=== PATIENT | female | born 1970 | race Caucasian/White ===

== ENCOUNTER → 2019-12-25 11:23 | Outpatient (CLI) | payer OTHER, SELFPAY ==
--- NOTE | 2019-12-25 | DI.MG.S_ITS ---
BILATERAL DIGITAL SCREENING MAMMOGRAM 3D/2D WITH CAD: 12/25/2019 CLINICAL: Routine screening. Comparison is made to exams dated: 11/26/2016 mammogram - [facility], 10/31/2014 mammogram - [facility], and 07/08/2013 mammogram - [facility]. There are scattered fibroglandular elements in both breasts. Current study was also evaluated with a Computer Aided Detection (CAD) system. No significant masses, calcifications, or other findings are seen in either breast. There has been no significant interval change. IMPRESSION: NEGATIVE There is no mammographic evidence of malignancy. A 1 year screening mammogram is recommended. This exam was interpreted at Station ID: [id number]. NOTE: For mammograms, a report in lay terms will be sent to the patient. Approximately 15% of breast malignancies will not be visualized mammographically. In the management of a palpable breast mass, a negative mammogram must not discourage biopsy of a clinically suspicious lesion. Electronically Signed By: Barbara [email or web address]:12/26/2019 15:44:57 letter sent: Normal Exam ACR BI-RADS Category 1: Negative [id number]
== END ==
PROVIDERS: Referring Provider Family Medicine; Visit Provider Family Medicine
DX: Z12.31 Encounter for screening mammogram for malignant neoplasm of breast (principal)
CPT/HCPCS: 77063; 77067

== ENCOUNTER 2021-03-16 12:38 | Emergency (ER) | payer OTHER, SELFPAY ==
[2021-03-16 13:14] VITALS: BP 148/63; PULSE 70; RESP 16; TEMP 36.4; O2SAT 99; BMI 33.3
--- NOTE | 2021-03-16 15:06 | DI.RAD.S_ITS ---
PROCEDURE: XR LUMBAR SPINE 2-3V INDICATIONS: sudden onset back pain with radiation to rt lateral hip TECHNIQUE: 2 views of the lumbar spine were acquired. COMPARISON: None. FINDINGS: Bones: 5 [id number] vertebrae are present. There is normal bony alignment. No vertebral body compression fractures. No suspicious bony lesions. There is at least moderate disc space narrowing seen at L5-S1. Mild disc space narrowing is seen at L3-L4 and L4-L5. Lower lumbar spine facet arthropathy is seen. Soft tissues: Overlying bowel gas pattern is normal. No suspicious soft tissue calcifications. IMPRESSION: No won, acute plain film abnormality is seen. Focal L5-S1 degenerative change is seen. If it would be helpful for clinical management decision making, please consider a dedicated, scheduled lumbar spine MRI for further evaluation (assuming that there is no contraindication). Dictated by: Kartik Weber M.D. on 03/16/2021 at 14:58 Approved by: Kartik Weber M.D. on 03/16/2021 at 14:59
--- NOTE | 2021-03-16 15:07 | ED.BACK ---
HPI - Back Pain/Injury <SIGIFREDO Sanchez - Last Filed: 03/16/21 16:28> General Chief Complaint: Back Pain/Injury Stated Complaint: Back went out Time Seen by Provider: 03/16/21 14:52 Source: patient History of Present Illness HPI Narrative: 51-year-old female presents to the emergency department for low back pain which came on suddenly when she was opening a Fridge today and radiated down the lateral aspect of her right hip. She has a history of low back pain in the past but today she felt like her back went ?out?. She denies any sensation changes to her lower extremities, she denies any fever, recent illness, loss of bowel or bladder, weakness, changes to her gait, or any other changes. Patient reports that she took 800 mg of ibuprofen this morning after this happened which helped a little bit. She has never had any imaging of her low back in the past. Related Data Previous Rx's Medication Instructions Recorded lidocaine 4 % topical patch 1 patch TOPICAL DAILY PRN #10 ea 03/16/21 lidocaine 4 % topical patch 1 patch TOPICAL DAILY PRN #10 ea 03/16/21 methocarbamol 500 mg tablet 500 mg PO Q8H #20 tab 03/16/21 methocarbamol 500 mg tablet 500 mg PO Q8H PRN #20 tab 03/16/21 prednisone 20 mg tablet 40 mg PO DAILY #10 tab 03/16/21 prednisone 20 mg tablet 40 mg PO DAILY 5 Days tab 03/16/21 prednisone 20 mg tablet 40 mg PO DAILY 5 Days #10 tab 03/16/21 Allergies Allergy/AdvReac Type Severity Reaction Status Date / Time Penicillins Allergy Severe Hives Verified 03/16/21 13:20 Review of Systems <SIGIFREDO Sanchez - Last Filed: 03/16/21 16:28> Review of Systems Narrative: General: denies fever, chills Head/Neck: denies headache, neck pain Eyes: denies visual changes, eye pain Cardio: denies chest pain, palpitations Respiratory: denies shortness of breath, cough GI: denies abdominal pain, nausea, vomiting, or diarrhea : denies dysuria, hematuria MSK: denies joint pain, muscle weakness, endorses right-sided low back pain with muscle tightness and spasm Skin: denies rash, itching Neuro: denies numbness, tingling, sensation changes Patient History <SIGIFREDO Sanchez - Last Filed: 03/16/21 16:28> Social History Smoking Status: Never smoker Smoking Status: Never smoker alcohol intake frequency: 0-2 drinks per day Substance Use Type: does not use Exam <SIGIFREDO Sanchez - Last Filed: 03/16/21 16:28> Narrative Exam Narrative: Independently reviewed vitals signs and nursing notes. General: Awake, alert, nontoxic, no cardiorespiratory distress Head/Neck: Atraumatic, neck full range of motion Eyes: EOMI, conjunctiva normal Nose: nares patent, no rhinorrhea Mouth/Throat: moist mucus membranes, no oral lesions Cardio: Regular rate and rhythm, no peripheral edema Respiratory: respirations unlabored without wheezing, stridor, or rales. No retractions. GI: Abdomen soft, nontender MSK: Moves all extremities, neurovascularly intact, muscles to the right side of lumbar spine are firm and tight. Skin: Normal capillary refill, no rash Neuro: Normal speech and cognition, normal gait Initial Vital Signs Initial Vital Signs: Vital Signs Temperature 97.5 F L 03/16/21 13:14 Pulse Rate 70 03/16/21 13:14 Respiratory Rate 16 03/16/21 13:14 Blood Pressure 148/63 H 03/16/21 13:14 Pulse Oximetry 99 03/16/21 13:14 <Daniela Lindsey DO - Last Filed: 03/18/21 14:53> Initial Vital Signs Initial Vital Signs: Vital Signs Temperature 97.5 F L 03/16/21 13:14 Pulse Rate 70 03/16/21 13:14 Respiratory Rate 16 03/16/21 13:14 Blood Pressure 148/63 H 03/16/21 13:14 Pulse Oximetry 99 03/16/21 13:14 Course <SIGIFREDO Sanchez - Last Filed: 03/16/21 16:28> Orders Ordered: Discontinued Medications Acetaminophen (Acetaminophen 325 Mg Tablet) 975 mg PO NOW ONE Stop: 03/16/21 15:07 Last Admin: 03/16/21 15:33 Dose: 975 mg Documented by: RSTONE Methocarbamol (Methocarbamol 500 Mg Tablet) 500 mg PO NOW ONE Stop: 03/16/21 15:07 Last Admin: 03/16/21 15:33 Dose: 500 mg Documented by: SAMIRA Prednisone (Prednisone 20 Mg Tablet) 40 mg PO NOW ONE Stop: 03/16/21 15:07 Last Admin: 03/16/21 15:33 Dose: 40 mg Documented by: SAMIRA Vital Signs Vital signs: Vital Signs - 8 hr 03/16/21 13:14 Temperature 97.5 F L Pulse Rate 70 Respiratory Rate 16 Blood Pressure 148/63 H Pulse Oximetry 99 <Daniela Lindsey DO - Last Filed: 03/18/21 14:53> Orders Ordered: Discontinued Medications Acetaminophen (Acetaminophen 325 Mg Tablet) 975 mg PO NOW ONE Stop: 03/16/21 15:07 Last Admin: 03/16/21 15:33 Dose: 975 mg Documented by: SAMIRA Methocarbamol (Methocarbamol 500 Mg Tablet) 500 mg PO NOW ONE Stop: 03/16/21 15:07 Last Admin: 03/16/21 15:33 Dose: 500 mg Documented by: SAMIRA Prednisone (Prednisone 20 Mg Tablet) 40 mg PO NOW ONE Stop: 03/16/21 15:07 Last Admin: 03/16/21 15:33 Dose: 40 mg Documented by: SAMIRA Vital Signs Vital signs: Vital Signs - 8 hr 03/16/21 13:14 Temperature 97.5 F L Pulse Rate 70 Respiratory Rate 16 Blood Pressure 148/63 H Pulse Oximetry 99 MDM - Back Pain/Injury <SIGIFREDO Sanchez - Last Filed: 03/16/21 16:28> Imaging Data lumbar xr: Radiologist's Impression: PROCEDURE:? XR LUMBAR SPINE 2-3V ? INDICATIONS:? sudden onset back pain with radiation to rt lateral hip ? TECHNIQUE:? 2 views of the lumbar spine were acquired.? ? COMPARISON:? None. ? FINDINGS:? ? Bones:? 5 kja-wth-[id number] vertebrae are present.? There is normal bony alignment.? No vertebral body compression fractures.? No suspicious bony lesions.? ? There is at least moderate disc space narrowing seen at L5-S1.? Mild disc space narrowing is seen at L3-L4 and L4-L5. Lower lumbar spine facet arthropathy is seen.? ? Soft tissues:? Overlying bowel gas pattern is normal.? No suspicious soft tissue calcifications.? ? ? IMPRESSION:? No won, acute plain film abnormality is seen. ? Focal L5-S1 degenerative change is seen. ? If it would be helpful for clinical management decision making, please consider a dedicated, scheduled lumbar spine MRI for further evaluation (assuming that there is no contraindication).? ? ? Dictated by: Kartik Weber M.D. on 03/16/2021 at 14:58 ? ? Approved by: Kartik Weber M.D. on 03/16/2021 at 14:59? MDM Narrative Medical decision making narrative: 51-year-old female presents to the emergency department for acute onset of low back pain with radiation down the lateral aspect of her right hip which started which she was opening the Fridge today. Patient reports that she has had some low back pain in the same area in her past but never this bad. Patient reports that she was only able to lie down on the floor for comfort, she took 800 mg of ibuprofen and came into the emergency department as she was unable to tolerate the pain at home. Lumbar spine X-ray showed There is at least moderate disc space narrowing seen at L5-S1.? Mild disc space narrowing is seen at L3-L4 and L4-L5. Lower lumbar spine facet arthropathy is seen. (per radiology report). [place] she reports that she will follow-up with him after the holiday weekend for a referral for physical therapy. If she has any weakness, loss of bowel or bladder, numbness sensation changes she will return to the emergency department before then. Multiple etiologies of back pain considered including; Epidural abscess, cauda equina, mass occupying lesion, and other considered. Patient is appropriate and amenable to discharge home. Vital signs are stable on repeat examination is unremarkable. Patient has been informed of results. Patient has been given strict return to ER precautions for any new or worsening symptoms. Patient understands to follow up closely with outpatient providers as instructed. Patient understands plan and agrees to discharge home. All questions and concerns answered at this time. Discharge Plan Departure Patient Disposition: Home Clinical Impression: Acute back pain with radiculopathy, Degeneration of intervertebral disc at L5-S1 level Instructions: DI for Low Back Pain, DI for Back Pain With Sciatica Activity Restrictions/Additional Instructions: *You have been diagnosed with mild disc space narrowing between L3 and L4, L4 and L5, and L5-S1 with focal degenerative changes. Please follow-up with your primary care provider for physical therapy and if you need any additional medications. Please follow-up with Dr. Lopez if approved by Jay in if your primary care provider thinks that this will be helpful. Use warm packs as tolerated to help relax the muscles, ice if it is helpful, 800 mg of ibuprofen every 8 hours with food and water, muscle relaxers as necessary for spasms, lidocaine patches if they help, return to the emergency department if you have any worsening of your pain. *What to do: *Please continue to take your regular medications as directed. [x ] New medication prescriptions sent to your pharmacy: [ [facility]] [ ] New medication written as a paper prescription [ ] No new medications given *Please follow up with your primary care provider in 2-3 days, call for an appointment. Let them know you were seen in the Emergency Department and that we ask that you be seen in follow up. We will electronically transmit a record of today's note if your PCP is in our system *If you do not have a primary care provider please contact the [facility] Resource line at [phone]. They will ask some questions about your medical history and help get you set up with a doctor in the community. *Return to Emergency Department if you should have any new, worsening or concerning symptoms, such as [fever greater than 101F, chills, worsening pain, persistent vomiting or other bothersome symptoms] Prescriptions: New methocarbamol 500 mg tablet 500 mg PO Q8H PRN (Reason: muscle spasm) Qty: 20 0RF prednisone 20 mg tablet 40 mg PO DAILY 5 Days Qty: 10 0RF lidocaine 4 % adhesive patch,medicated 1 patch topical DAILY PRN (Reason: pain) Qty: 10 0RF lidocaine 4 % adhesive patch,medicated 1 patch topical DAILY PRN (Reason: pain) Qty: 10 0RF methocarbamol 500 mg tablet 500 mg PO Q8H Qty: 20 0RF prednisone 20 mg tablet 40 mg PO DAILY 5 Days 0RF prednisone 20 mg tablet 40 mg PO DAILY Qty: 10 0RF Referrals: Tavo Lopez MD [Physician] - 7-10 days Christophe Liriano MD [Non-Staff] - 3-5 days <Daniela Lindsey DO - Last Filed: 03/18/21 14:53> Cosign ED Attending Cossabihaature Attestation: I was immediately available in the department for consultation. Documentation has been reviewed. I agree with assessment and plan.
[2021-03-16] MEDS: ACETAMINOPHEN 325 MG TABLET 975 MG PO (15:33)
[2021-03-16] MEDS: predniSONE 20 MG TABLET 40 MG PO (15:33)
[2021-03-16] MEDS: methocarbamoL 500 MG TABLET PO (15:33)
[2021-03-16 16:23] VITALS: BP 137/63; PULSE 58; RESP 16; O2SAT 99
== END 2021-03-16 16:23 | disposition home or self-care (01) ==
PROVIDERS: Emergency Provider Nurse Practitioner Critical Care Medicine
DX: M54.50 Low back pain, unspecified (principal); M54.16 Radiculopathy, lumbar region; M51.37 Other intervertebral disc degeneration, lumbosacral region
CPT/HCPCS: 72100; 99283

== ENCOUNTER → 2022-12-20 18:43 | Outpatient (CLI) | payer OTHER, SELFPAY ==
--- NOTE | 2022-12-20 18:45 | DI.RAD.S_ITS ---
PROCEDURE: XR CHEST 2V INDICATIONS: Cough x 2.5 weeks TECHNIQUE: 2 views of the chest were acquired. COMPARISON: None. FINDINGS: Surgical changes and devices: Right IJ MediPort. Lungs and pleura: Lungs are clear. No pleural effusions or pneumothorax. Mediastinum: Mediastinal contours are normal. Heart size is normal. Bones and chest wall: No suspicious bony abnormalities. Soft tissues appear unremarkable. IMPRESSION: No acute cardiopulmonary abnormality is seen. Dictated by: Jennifer Mcguire M.D. on 12/20/2022 at 21:56 Approved by: Jennifer Mcguire M.D. on 12/20/2022 at 21:56
== END ==
PROVIDERS: Visit Provider Physician Assistant
DX: J40 Bronchitis, not specified as acute or chronic (principal)
CPT/HCPCS: 71046

== ENCOUNTER → 2023-06-23 13:14 | Outpatient (CLI) | payer OTHER, SELFPAY ==
--- NOTE | 2023-06-23 13:28 | DI.MRI.S_ITS ---
PROCEDURE: MR KNEE LT WO CON INDICATIONS: Pain in left knee TECHNIQUE: Noncontrast sagittal PD fast spin echo and T2 fast spin echo with fat saturation, sagittal 3-D FLASH with fat saturation; coronal T1 spin echo and PD fast spin echo with fat saturation, and axial PD fast spin echo with fat saturation through the knee. COMPARISON: None. FINDINGS: Image quality: Excellent. Anterior cruciate ligament: Intact. Posterior cruciate ligament: Intact. Medial collateral ligament: Mild thickening of the proximal medial collateral ligament. Trace adjacent edema may be secondary to recent sprain or reactive to the adjacent meniscal tear. Lateral collateral ligament: Immediate signal at the proximal lateral collateral ligament is compatible with a chronic low-grade sprain. Medial meniscus: Complex tearing of the medial meniscus with a horizontal oblique component at the posterior horn and body and a small inferiorly displaced flap at the meniscal body extending into the medial tibial gutter. There is mild extrusion of the medial meniscus beyond the femorotibial joint line. Lateral meniscus: Mild free edge fibrillation of the body of the lateral meniscus without significant meniscal tearing. Medial and lateral tendons: The semimembranosus tendon insertions appear intact. Visualized portions of the pes anserinus tendons appear normal. The popliteus tendon is intact. Iliotibial band appears normal. Anterior structures: The quadriceps and patellar tendons appear intact. No patellar subluxation. No femoral trochlear dysplasia or ventral trochlear prominence. No edema in the infrapatellar fat pad. Bones and cartilage: No bone marrow contusions or fractures. Medial femorotibial cartilage: Mild to moderate partial-thickness cartilage irregularity in the weight-bearing portion of medial femorotibial compartment with small marginal osteophytes. Lateral femorotibial cartilage: Mild partial-thickness cartilage irregularity with focal high-grade cartilage loss at the posterior weight-bearing portion of the lateral femoral condyle. Patellofemoral cartilage: High-grade cartilage loss is seen in the medial femoral trochlea and trochlear groove. There is deep cartilage fissuring and partial-thickness cartilage irregularity in the patella. Marginal osteophytes are present. Soft tissues: Small joint effusion. Small medial popliteal cyst. The musculature surrounding the knee is normal in bulk. IMPRESSION: 1. Complex tearing of the medial meniscus with a horizontal oblique component at the posterior horn and body and inferiorly displaced meniscal flap component at the meniscal body extending into the medial tibial gutter. 2. Free edge fibrillation of the body of the lateral meniscus without significant meniscal tearing. 3. Chronic low-grade sprains of the medial and lateral collateral ligaments. 4. 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 5. Small joint effusion. Small medial popliteal cyst. Approved by: Rohan Holloway M.D. on 06/23/2023 at 21:27
== END ==
LOC: MRI 13:15
PROVIDERS: Referring Provider Nurse Practitioner Family; Visit Provider Nurse Practitioner Family
DX: S83.232A Complex tear of medial meniscus, current injury, left knee, initial encounter (principal); S83.412A Sprain of medial collateral ligament of left knee, initial encounter; S83.422A Sprain of lateral collateral ligament of left knee, initial encounter; M94.262 Chondromalacia, left knee; M25.462 Effusion, left knee; M71.22 Synovial cyst of popliteal space [Baker], left knee; M25.562 Pain in left knee
CPT/HCPCS: 73721

== ENCOUNTER → 2024-07-05 08:09 | Outpatient (CLI) | payer OTHER, SELFPAY ==
--- NOTE | 2024-07-05 08:10 | DI.RAD.S_ITS ---
PROCEDURE: XR KNEE RT 3V INDICATIONS: right knee pain TECHNIQUE: 3 views of the knee were acquired. COMPARISON: None. FINDINGS: Bones: There are no osseous abnormalities. Joints: Moderate patellofemoral and medial tibial femoral degenerative change appreciated. Small effusion noted Small effusion noted Soft tissues: Small ossification is seen in the lateral parapatellar soft tissues IMPRESSION: Moderate degeneration small effusion Dictated by: Apolinar Segovia M.D. on 07/05/2024 at 10:29 Approved by: Apolinar Segovia M.D. on 07/05/2024 at 10:29
== END ==
PROVIDERS: Referring Provider Nurse Practitioner Family; Visit Provider Nurse Practitioner Family
DX: S86.911A Strain of unspecified muscle(s) and tendon(s) at lower leg level, right leg, initial encounter (principal); M25.461 Effusion, right knee; X58.XXXA Exposure to other specified factors, initial encounter
CPT/HCPCS: 73562

== ENCOUNTER → 2024-12-29 17:35 | Outpatient (CLI) | payer OTHER, SELFPAY | PROVIDERS: Visit Provider Nurse Practitioner Family | DX: R35.0 Frequency of micturition (principal) | CPT/HCPCS: 87210 ==